=== PATIENT | female | born 1995 | race Caucasian/White ===

== ENCOUNTER 2018-02-01 00:30 | Emergency (ER) | payer OTHER ==
[2018-02-01] MEDS ORDERED: NS 1,000 ML IV ONE ×2 (00:57→02:23)
[2018-02-01] MEDS ORDERED: KETOROLAC 15 MG/1 ML SDV IVP ONE (00:58)
[2018-02-01] MEDS ORDERED: LIDOCAINE 1% 120 MG in NS 100 ML IV ONE (01:08)
--- NOTE | 2018-02-01 01:26 | EDPHY ---
H & P Stated Complaint: venice landa, here monday, L back pain, L abd pain Time Seen by Provider: 02/01/18 00:56 HPI/ROS: HPI The patient presents with left flank and abdominal pain which has been present for the last several days, diagnosed in the emergency department with left- sided ureterolithiasis with 5 mm stone visualized on CT scan at the [facility]. She has been taking Percocet and Flomax at home though has had intermittent episodes of pain. Her pain became worse tonight despite a dose of Percocet so she comes to the emergency department. Pain is dull, constant currently, not associated with any nausea or vomiting. She does not have any hematuria grossly. Her mother has been straining her urine and has noticed some debris though not any stone. She has not followed up with Urology yet.. REVIEW OF SYSTEMS Constitutional: No fever, no chills. Eyes: No discharge. ENT: No sore throat. Cardiovascular: No chest pain, no palpitations. Respiratory: No cough, no shortness of breath. Gastrointestinal: No abdominal pain, no vomiting. Genitourinary: No hematuria. Musculoskeletal: No back pain. Skin: No rashes. Neurological: No headache. PMHx: Ureterolithiasis as above Soc Hx: Here with her mother PHYSICAL General Appearance: Alert, no distress Eyes: Pupils equal and round no pallor or injection ENT, Mouth: Mucous membranes moist Respiratory: There are no retractions, lungs are clear to auscultation Cardiovascular: Regular rate and rhythm Gastrointestinal: Abdomen is soft and non-tender, no masses, bowel sounds normal Back: There is left flank tenderness Neurological: A&O, moves all extremities Skin: Warm and dry, no rashes Musculoskeletal: Neck is supple non tender Extremities: symmetrical, full range of motion Psychiatric: Patient is oriented X 3, there is no agitation Source: Patient Exam Limitations: No limitations - Personal History LMP (Females 10-55): Now Current Tetanus Diphtheria and Acellular Pertussis (TDAP): Yes - Medical/Surgical History Hx Asthma: No Hx Chronic Respiratory Disease: No Hx Diabetes: No Hx Cardiac Disease: No Hx Renal Disease: No Hx Cirrhosis: No Hx Alcoholism: No Hx HIV/AIDS: No Hx Splenectomy or Spleen Trauma: No Other PMH: pe, kidney stones - Social History Smoking Status: Never smoked Constitutional: Initial Vital Signs Temperature (C) 36.6 C 02/01/18 00:32 Heart Rate 83 02/01/18 00:32 Respiratory Rate 18 02/01/18 00:32 Blood Pressure 117/76 02/01/18 00:32 O2 Sat (%) 100 02/01/18 00:32 O2 Delivery Mode Room Air Allergies/Adverse Reactions: No Known Allergies Allergy (Verified 02/01/18 00:31) Home Medications: Medication Instructions Recorded Abilify 01/10/12 Lamictal 01/10/12 Ondansetron Odt [Zofran Odt 4 mg 4 mg PO Q4 PRN #12 tab 01/29/18 (*)] Seroquel 01/29/18 Tamsulosin HCl [Flomax 0.4 MG (*)] 0.4 mg PO DAILY #5 cap 01/29/18 oxyCODONE/APAP 5/325 [Percocet 1 - 2 tab PO Q4H PRN #20 tab 01/29/18 5/325 (*)] Medical Decision Making Differential Diagnosis: 22-year-old healthy female diagnosed with 5 mm ureteral distal calculus 3 days ago presents with ongoing pain. On exam, vital signs are normal, does have left -sided flank pain. Suspect stone is hung up at the [facility]. She could also have urinary tract infection. She is taking Percocet though not any NSAIDs at home which may be contributing to her pain. Plan for Toradol, lidocaine, IV fluids, labs including UA here. Patient's labs were checked and were all relatively unremarkable with just mild hematuria and no signs of renal failure. She received medications and fluids and was observed for several hours and eventually felt much better. I offered her admission to the hospital, however she would like to go home. I have advised her to add ibuprofen to her current medication regimen as I think this would help her symptoms. I have also given her the information once again for the urologist to follow up with in case her symptoms persist. - Data Points Laboratory Results: Laboratory Results 02/01/18 01:25 02/01/18 01:25 02/01/18 02/01/18 02/01/18 01:25 01:25 01:25 WBC 9.03 10^3/uL 10^3/uL (3.80-9.50) RBC 3.62 10^6/uL L 10^6/uL (4.18-5.33) Hgb 11.8 g/dL L g/dL (12.6-16.3) Hct 33.9 % L % (38.0-47.0) MCV 93.6 fL fL (81.5-99.8) MCH 32.6 pg pg (27.9-34.1) MCHC 34.8 g/dL g/dL (32.4-36.7) RDW 12.8 % % (11.5-15.2) Plt Count 232 10^3/uL 10^3/uL (150-400) MPV 10.7 fL fL (8.7-11.7) Neut % (Auto) 46.2 % % (39.3-74.2) Lymph % (Auto) 42.1 % % (15.0-45.0) [place] % (Auto) 8.6 % % (4.5-13.0) Eos % (Auto) 2.3 % % (0.6-7.6) Baso % (Auto) 0.6 % % (0.3-1.7) Nucleat RBC Rel Count 0.0 % % (0.0-0.2) Absolute Neuts (auto) 4.17 10^3/uL 10^3/uL (1.70-6.50) Absolute Lymphs (auto) 3.80 10^3/uL H 10^3/uL (1.00-3.00) Absolute Monos (auto) 0.78 10^3/uL 10^3/uL (0.30-0.80) Absolute Eos (auto) 0.21 10^3/uL 10^3/uL (0.03-0.40) Absolute Basos (auto) 0.05 10^3/uL 10^3/uL (0.02-0.10) Absolute Nucleated RBC 0.00 10^3/uL 10^3/uL (0-0.01) Immature Gran % 0.2 % % (0.0-1.1) Immature Gran # 0.02 10^3/uL 10^3/uL (0.00-0.10) Sodium 138 mEq/L mEq/L (135-145) Potassium 3.8 mEq/L mEq/L (3.3-5.0) Chloride 108 mEq/L mEq/L (97-110) Carbon Dioxide 25 mEq/l mEq/l (22-31) Anion Gap 5 mEq/L L mEq/L (8-16) BUN 13 mg/dL mg/dL (7-23) Creatinine 0.9 mg/dL mg/dL (0.6-1.0) Estimated GFR > 60 Glucose 92 mg/dL mg/dL (70-100) Calcium 9.3 mg/dL mg/dL (8.5-10.4) Urine Color COLORLESS Urine Appearance CLEAR Urine pH 7.0 (5.0-7.5) Ur Specific [place] 1.002 (1.002-1.030) Urine Protein NEGATIVE (NEGATIVE) Urine Ketones NEGATIVE (NEGATIVE) Urine Blood 2+ H (NEGATIVE) Urine Nitrate NEGATIVE (NEGATIVE) Urine Bilirubin NEGATIVE (NEGATIVE) Urine Urobilinogen NEGATIVE EU EU (0.2-1.0) Ur Leukocyte Esterase NEGATIVE (NEGATIVE) Urine RBC 1-3 /hpf /hpf (0-3) Urine WBC 1-3 /hpf /hpf (0-3) Ur Epithelial Cells TRACE /lpf /lpf (NONE-1+) Urine Bacteria TRACE /hpf H /hpf (NONE SEEN) Urine Mucus TRACE /lpf /lpf (NONE-1+) Urine Glucose NEGATIVE (NEGATIVE) Medications Given: Discontinued Medications Sodium Chloride (Ns) 1,000 mls @ 0 mls/hr IV EDNOW ONE; Wide Open PRN Reason: Protocol Stop: 02/01/18 00:58 Last Admin: 02/01/18 01:26 Dose: 1,000 mls Lidocaine HCl 120 mg/ Sodium (Chloride) 112 mls @ 600 mls/hr IV EDNOW ONE Stop: 02/01/18 01:19 Last Admin: 02/01/18 02:16 Dose: 112 mls Sodium Chloride (Ns) 1,000 mls @ 0 mls/hr IV EDNOW ONE; Wide Open PRN Reason: Protocol Stop: 02/01/18 02:24 Last Admin: 02/01/18 02:31 Dose: 1,000 mls Ketorolac Tromethamine (Toradol) 15 mg IVP EDNOW ONE Stop: 02/01/18 00:59 Last Admin: 02/01/18 01:25 Dose: 15 mg Departure - Departure Disposition: Home, Routine, Self-Care Clinical Impression: Renal colic on left side Condition: Good Instructions: Renal Colic (ED) Additional Instructions: I recommend that she add ibuprofen to the medications you are taking. You should take ibuprofen 400 mg every 6 hr around the clock. Then take the Percocet if the pain becomes severe. Please call the urologist to arrange for a follow-up appointment. Referrals: Camille Weaver MD [Primary Care Provider] - As per Instructions Jacob Smith MD [Medical Doctor] - As per Instructions
[2018-02-01 01:36] LABS: PLATELET COUNT 232 10^3/uL (150-400)
[2018-02-01 03:22] VITALS: BP 104/66
== END 2018-02-01 03:37 | disposition home or self-care (01) ==
DX: N23 Unspecified renal colic (principal); E86.9 Volume depletion, unspecified
CPT/HCPCS: 96374; J1885

== ENCOUNTER 2018-10-28 19:15 | Inpatient (IN) | payer OTHER ==
[2018-10-28] MEDS ORDERED: NS 1,000 ML IV ONE ×2 (19:30)
--- NOTE | 2018-10-28 19:30 | EDPHY ---
H & P Stated Complaint: COSTA, fever, neck pain, generalized body aches, nausea Time Seen by Provider: 10/28/18 19:25 HPI/ROS: HPI: This is a 22-year-old female who presents with Chief Complaint: COSTA, fever, neck pain, generalized body aches, nausea Location: Body Quality: Generalized aches, nausea, fever Duration: 24-48 hours Signs and Symptoms: + T-max of a 101 F fever, + nausea, + vomiting, no diarrhea , no urinary symptoms, no chest pain, no shortness of breath, no wheezing, no cough, + sore throat, no neck stiffness, no joint pain, no swollen glands, no ear pain, no rash Timing: Rapid onset, constant Severity: Moderate Context: Patient is up-to-date on immunizations, returns to [place] from [facility] in [place] on Monday with complaints of 24-48 hour history of generalized body aches, headache that is global in nature, fever with a T-max of a 101 F, nausea and 2 episodes of vomiting. She complains of mild right lower quadrant tenderness. Denies any urinary symptoms. Complains of posterior neck pain. She was seen at urgent care and had a negative influenza test. She has a history of strep pharyngitis. No history of mononucleosis. Takes chlorthalidone. Modifying Factors: Took Tylenol 3 hr prior to arrival Comment: ROS: A comprehensive 10 system review of systems is otherwise negative aside from elements mentioned in the history of present illness. MEDICAL/SURGICAL/SOCIAL HISTORY: Medical history: History of strep pharyngitis, history of pulmonary embolism, kidney stones. LMP 2-3 weeks ago. Surgical history: Denies Social history: Drinks alcohol socially, denies drug and tobacco use. Family history noncontributory. CONSTITUTIONAL: Ill but nontoxic-appearing young adult white female, parents at bedside, awake and alert, appears uncomfortable HEENT: Atraumatic and normocephalic, PERRL, EOMI. Nares patent; no rhinorrhea; no nasal mucosal edema. Tympanic membranes clear. Oropharynx clear, 1+ tonsillar hypertrophy with mild erythema; uvula midline; no exudate and moist pink mucosa. Airway patent. Spotty anterior and posterior cervical lymphadenopathy. No meningismus. Cardiovascular: Normal S1/S2, tachycardia, regular rhythm, without murmur rub or gallop. PULMONARY/CHEST: Symmetrical and nontender. Clear to auscultation bilaterally. Good air movement. No accessory muscle usage. ABDOMEN: Soft, nondistended, mild right lower quadrant tenderness to deep palpation, no rebound, no guarding, no peritoneal signs, no masses or organomegaly. No CVAT. EXTREMITIES: 2/2 pulses, strength 5/5, no deformities, no clubbing, no cyanosis or edema. NEUROLOGICAL: no focal neuro deficits. GCS 15. Speech is fluent. SKIN: Warm and dry, diaphoretic, no erythema. no rash. Good capillary refill. Source: Patient, Family (Parents) Exam Limitations: No limitations - Personal History LMP (Females 10-55): 15-21 Days Ago Current Tetanus Diphtheria and Acellular Pertussis (TDAP): Yes - Medical/Surgical History Hx Asthma: No Hx Chronic Respiratory Disease: No Hx Diabetes: No Hx Cardiac Disease: No Hx Renal Disease: No Hx Cirrhosis: No Hx Alcoholism: No Hx HIV/AIDS: No Hx Splenectomy or Spleen Trauma: No Other PMH: pe, kidney stones - Social History Smoking Status: Never smoked Constitutional: Initial Vital Signs Temperature (C) 37.0 C 10/28/18 19:18 Heart Rate 107 H 10/28/18 19:18 Respiratory Rate 16 10/28/18 19:18 Blood Pressure 105/57 L 10/28/18 19:18 O2 Sat (%) 94 10/28/18 19:18 O2 Delivery Mode Room Air Allergies/Adverse Reactions: No Known Allergies Allergy (Verified 02/01/18 00:31) Home Medications: Medication Instructions Recorded ARIPiprazole [Abilify 2 mg (*)] 2 mg PO DAILY 01/10/12 lamoTRIgine [Lamotrigine] 150 mg PO HS 01/10/12 Ascorbic Acid [Vitamin C 500 mg 1,000 mg PO DAILY 10/28/18 (*)] Chlorthalidone [Chlorthalidone 25 25 mg PO DAILY 10/28/18 mg (*)] Dextroamphetamine/Amphetamine 15 mg PO DAILY PRN 10/28/18 [Adderall Xr 15 mg Capsule] Herbals/Supplements -Info Only 1 ea PO DAILY 10/28/18 Medical Decision Making - Diagnostics Imaging Results: Imaging Impressions Abdomen Ultrasound 10/28/18 19:33 Impression: 1. No evidence for dilated appendix in the right lower quadrant. A normal appendix is felt to be identified. Findings discussed with Nury Singleton PAC at 20:20 hour, 10/28/2018. ED Course/Re-evaluation: Vital signs reviewed and show mild tachycardia. No pyrexia. IV access, laboratory studies including lactic acid, blood culture, urinalysis, abdominal ultrasound ordered Given 2 L normal saline, IV Toradol 30 mg 2029: Laboratory studies reviewed. WBC 20 K, lactic acid 1.0, sodium 132, potassium 2.3, creatinine 0.8 2032: Rapid strep negative. [place] screen negative 2034: Called by radiologist, Dr. Young, who reports right lower quadrant ultrasound shows no signs of appendicitis and no secondary signs of appendicitis. 2039: Notified by tech that potassium 2.3; magnesium level ordered and repeat I -STAT potassium level ordered 2109: I-STAT potassium 2.1; given IV potassium 10 mL/Eq supplementation 2128: Magnesium level 1.4;, IV magnesium sulfate [address] Ruffin performed a lumbar puncture 2134: ED decision to consult hospitalist for admission for viral syndrome, hypokalemia and hypomagnesemia. Spoke with Dr. Mathews who kindly agrees to admit patient to Dr. Gonzalez. 2342: Reviewed LP results with Dr. Ruffin. Clear, WBC 3, RBC 13, glucose 60, total protein 37; no indication for antibiotics at this time. This patient was seen under the supervision of my secondary supervising physician. I evaluated and cared for this patient with attending. Discussed this patient with Dr. Ruffin. Differential Diagnosis: Adult fever including but not limited to viral syndromes including influenza, urinary tract infection, pneumonia and sepsis. - Data Points Laboratory Results: Laboratory Results 10/28/18 19:54 10/28/18 19:54 10/28/18 10/28/18 10/28/18 21:04 19:59 19:55 WBC RBC Hgb POC Hgb 12.2 gm/dL L gm/dL (12.6-16.3) Hct POC Hct 36 % L % (38-47) MCV MCH MCHC RDW Plt Count MPV Neut % (Auto) Lymph % (Auto) [place] % (Auto) Eos % (Auto) Baso % (Auto) Nucleat RBC Rel Count Absolute Neuts (auto) Absolute Lymphs (auto) Absolute Monos (auto) Absolute Eos (auto) Absolute Basos (auto) Absolute Nucleated RBC Immature Gran % Seg Neutrophils % Band Neutrophils % Lymphocytes % Monocytes % Eosinophils % Basophils % Metamyelocytes % Myelocytes % Promyelocytes % Blast Cells % Immature Gran # Absolute Seg Neuts Absolute Band Neuts Absolute Lymphocytes Absolute Monocytes Absolute Eosinophils Absolute Basophils Absolute Metamyelocyte Absolute Myelocytes Absolute Promyelocytes Absolute Plasma Cells Nucleated RBCs RBC/WBC/PLT Morphology Absolute Blast Cells Plasma Cells % Platelet Estimate VBG Lactic Acid 1.0 mmol/L mmol/L (0.7-2.1) POC Sodium 135 mEq/L mEq/L (135-145) Sodium POC Potassium 2.1 mEq/L L* mEq/L (3.3-5.0) Potassium POC Chloride 90 mEq/L L mEq/L (97-110) Chloride Carbon Dioxide POC Total CO2 31 mEq/L mEq/L (22-31) Anion Gap POC BUN 9 mg/dL mg/dL (7-23) BUN Creatinine POC Creatinine 0.9 mg/dL mg/dL (0.6-1.0) Estimated GFR Glucose POC Glucose 99 mg/dL mg/dL (70-100) Calcium Magnesium 1.4 mg/dL L mg/dL (1.6-2.3) Total Bilirubin Conjugated Bilirubin Unconjugated Bilirubin AST ALT Alkaline Phosphatase Total Protein Albumin Beta HCG, Qual EBV Capsid Ag IgG Ab EBV Capsid Ag IgM Ab EBV Nuclear Antigen Ab EBV Interpretation Monoscreen Group A Strep Screen 10/28/18 10/28/18 10/28/18 19:54 19:54 19:54 WBC RBC Hgb POC Hgb Hct POC Hct MCV MCH MCHC RDW Plt Count MPV Neut % (Auto) Lymph % (Auto) [place] % (Auto) Eos % (Auto) Baso % (Auto) Nucleat RBC Rel Count Absolute Neuts (auto) Absolute Lymphs (auto) Absolute Monos (auto) Absolute Eos (auto) Absolute Basos (auto) Absolute Nucleated RBC Immature Gran % Seg Neutrophils % Band Neutrophils % Lymphocytes % Monocytes % Eosinophils % Basophils % Metamyelocytes % Myelocytes % Promyelocytes % Blast Cells % Immature Gran # Absolute Seg Neuts Absolute Band Neuts Absolute Lymphocytes Absolute Monocytes Absolute Eosinophils Absolute Basophils Absolute Metamyelocyte Absolute Myelocytes Absolute Promyelocytes Absolute Plasma Cells Nucleated RBCs RBC/WBC/PLT Morphology Absolute Blast Cells Plasma Cells % Platelet Estimate VBG Lactic Acid POC Sodium Sodium 132 mEq/L L mEq/L (135-145) POC Potassium Potassium 2.3 mEq/L L* mEq/L (3.5-5.2) POC Chloride Chloride 88 mEq/L L mEq/L (97-110) Carbon Dioxide 30 mEq/l mEq/l (22-31) POC Total CO2 Anion Gap 14 mEq/L mEq/L (6-14) POC BUN BUN 12 mg/dL mg/dL (7-23) Creatinine 0.8 mg/dL mg/dL (0.6-1.0) POC Creatinine Estimated GFR > 60 Glucose 99 mg/dL mg/dL (70-100) POC Glucose Calcium 8.8 mg/dL mg/dL (8.5-10.4) Magnesium Total Bilirubin 2.8 mg/dL H mg/dL (0.1-1.4) Conjugated Bilirubin 0.4 mg/dL mg/dL (0.0-0.5) Unconjugated Bilirubin 2.4 mg/dL H mg/dL (0.0-1.1) AST 57 IU/L H IU/L (14-46) ALT 74 IU/L H IU/L (9-52) Alkaline Phosphatase 117 IU/L IU/L (38-126) Total Protein 6.4 g/dL g/dL (6.3-8.2) Albumin 3.9 g/dL g/dL (3.5-5.0) Beta HCG, Qual NEGATIVE EBV Capsid Ag IgG Ab Pending EBV Capsid Ag IgM Ab Pending EBV Nuclear Antigen Ab Pending EBV Interpretation Pending Monoscreen NEGATIVE (NEGATIVE) Group A Strep Screen 10/28/18 10/28/18 19:54 19:30 WBC 19.63 10^3/uL H 10^3/uL (3.80-9.50) RBC 4.03 10^6/uL L 10^6/uL (4.18-5.33) Hgb 13.2 g/dL g/dL (12.6-16.3) POC Hgb Hct 36.5 % L % (38.0-47.0) POC Hct MCV 90.6 fL fL (81.5-99.8) MCH 32.8 pg pg (27.9-34.1) MCHC 36.2 g/dL g/dL (32.4-36.7) RDW 11.9 % % (11.5-15.2) Plt Count 187 10^3/uL 10^3/uL (150-400) MPV 11.3 fL fL (8.7-11.7) Neut % (Auto) Not Reported Lymph % (Auto) Not Reported [place] % (Auto) Not Reported Eos % (Auto) Not Reported Baso % (Auto) Not Reported Nucleat RBC Rel Count Not Reported Absolute Neuts (auto) Not Reported Absolute Lymphs (auto) Not Reported Absolute Monos (auto) Not Reported Absolute Eos (auto) Not Reported Absolute Basos (auto) Not Reported Absolute Nucleated RBC Not Reported Immature Gran % Not Reported Seg Neutrophils % 80.0 % % Band Neutrophils % 9.0 % % Lymphocytes % 4.0 % % Monocytes % 6.0 % % Eosinophils % 0.0 % % Basophils % 1.0 % % Metamyelocytes % 0.0 % % Myelocytes % 0.0 % % Promyelocytes % 0.0 % % Blast Cells % 0.0 % % Immature Gran # Not Reported Absolute Seg Neuts 15.70 10^3/uL H 10^3/uL (1.70-6.50) Absolute Band Neuts 1.77 10^3/uL H 10^3/uL (0.00-0.70) Absolute Lymphocytes 0.79 10^3/uL L 10^3/uL (1.00-3.00) Absolute Monocytes 1.18 10^3/uL H 10^3/uL (0.30-0.80) Absolute Eosinophils 0.00 10^3/uL L 10^3/uL (0.03-0.40) Absolute Basophils 0.20 10^3/uL H 10^3/uL (0.02-0.10) Absolute Metamyelocyte 0.00 10^3/mL 10^3/mL (0.00-0.00) Absolute Myelocytes 0.00 10^3/mL 10^3/mL (0.00-0.00) Absolute Promyelocytes 0.00 10^3/uL 10^3/uL (0.00-0.00) Absolute Plasma Cells 0.00 10^3/uL 10^3/uL (0.00-0.00) Nucleated RBCs 0 /100 WBC /100 WBC (0-0) RBC/WBC/PLT Morphology NORMAL (NORMAL) Absolute Blast Cells 0.00 10^3/uL 10^3/uL (0.00-0.00) Plasma Cells % 0.0 % % Platelet Estimate ADEQUATE (ADEQ) VBG Lactic Acid POC Sodium Sodium POC Potassium Potassium POC Chloride Chloride Carbon Dioxide POC Total CO2 Anion Gap POC BUN BUN Creatinine POC Creatinine Estimated GFR Glucose POC Glucose Calcium Magnesium Total Bilirubin Conjugated Bilirubin Unconjugated Bilirubin AST ALT Alkaline Phosphatase Total Protein Albumin Beta HCG, Qual EBV Capsid Ag IgG Ab EBV Capsid Ag IgM Ab EBV Nuclear Antigen Ab EBV Interpretation Monoscreen Group A Strep Screen NEGATIVE (NEGATIVE) Medications Given: Magnesium Sulfate/Dextrose (Magnesium Sulf 1 Gm (Premix)) 100 mls @ 100 mls/hr IV EDNOW ONE Stop: 10/29/18 00:53 Last Admin: 10/28/18 23:56 Dose: 100 mls Discontinued Medications Fentanyl (Sublimaze) 50 mcg IVP EDNOW ONE Stop: 10/28/18 21:54 Last Admin: 10/28/18 22:02 Dose: 50 mcg Sodium Chloride (Ns) 1,000 mls @ 0 mls/hr IV ONCE ONE; Wide Open PRN Reason: Protocol Stop: 10/28/18 19:31 Last Admin: 10/28/18 19:56 Dose: 1,000 mls Sodium Chloride (Ns) 1,000 mls @ 0 mls/hr IV ONCE ONE; Wide Open PRN Reason: Protocol Stop: 10/28/18 19:31 Last Admin: 10/28/18 22:02 Dose: 1,000 mls Potassium Chloride (Potassium Cl 20 Meq (Premix)) 100 mls @ 50 mls/hr IV EDNOW ONE Stop: 10/28/18 23:13 Last Admin: 10/28/18 21:28 Dose: Not Given Potassium Chloride (Potassium Cl 10 Meq (Premix)) 100 mls @ 100 mls/hr IV EDNOW ONE Stop: 10/28/18 22:26 Last Admin: 10/28/18 22:02 Dose: 100 mls Magnesium Sulfate (Magnesium Sulf 2 Gm (Premix)) 50 mls @ 50 mls/hr IV EDNOW ONE Stop: 10/28/18 22:28 Last Admin: 10/28/18 23:56 Dose: Not Given Potassium Chloride (Potassium Cl 10 Meq (Premix)) 50 mls @ 50 mls/hr IV EDNOW ONE Stop: 10/28/18 22:31 Last Admin: 10/28/18 22:56 Dose: 50 mls Ketorolac Tromethamine (Toradol) 30 mg IVP EDNOW ONE Stop: 10/28/18 19:35 Last Admin: 10/28/18 20:00 Dose: 30 mg Point of Care Test Results: Chemistry 10/28/18 21:04 POC Sodium 135 mEq/L mEq/L (135-145) POC Potassium 2.1 mEq/L L* mEq/L (3.3-5.0) POC Chloride 90 mEq/L L mEq/L (97-110) POC Total CO2 31 mEq/L mEq/L (22-31) POC BUN 9 mg/dL mg/dL (7-23) POC Creatinine 0.9 mg/dL mg/dL (0.6-1.0) POC Glucose 99 mg/dL mg/dL (70-100) ISTAT H&H 10/28/18 21:04 POC Hgb 12.2 gm/dL L gm/dL (12.6-16.3) POC Hct 36 % L % (38-47) Departure - Departure Disposition: [facility] Inpatient Acute Clinical Impression: Viral syndrome, Hypokalemia, Hypomagnesemia Condition: Fair
[2018-10-28] MEDS ORDERED: KETOROLAC 30 MG/1 ML SDV IVP ONE (19:34)
[2018-10-28 20:10] LABS: PLATELET COUNT 187 10^3/uL (150-400)
[2018-10-28] MEDS ORDERED: POTASSIUM Cl (KCl) 100 ML IV ONE ×2 (21:14→21:27)
[2018-10-28] MEDS ORDERED: POTASSIUM Cl (KCl) 10 MEQ/100 ML BAG IV ONE (21:16)
[2018-10-28] MEDS ORDERED: MAGNESIUM SULF 2 GM/WATER 50 ML IV ONE (21:29)
[2018-10-28] MEDS ORDERED: POTASSIUM Cl (KCl) 50 ML IV ONE (21:32)
[2018-10-28] MEDS ORDERED: fentaNYL 100 MCG/2 ML INJ ONE (21:39)
[2018-10-28] MEDS ORDERED: fentaNYL 100 MCG/2 ML INJ IVP ONE (21:53)
[2018-10-28] MEDS ORDERED: LORazepam 0.5 MG TAB PO PRN (22:14)
[2018-10-28] MEDS ORDERED: ONDANSETRON DISINTEGRATING 4 MG TAB PO PRN (22:14)
[2018-10-28] MEDS ORDERED: PROMETHAZINE HCL 25 MG/ML INJ IVP PRN (22:14)
[2018-10-28] MEDS ORDERED: LORazepam 2 MG/ML INJ IVP PRN (22:14)
[2018-10-28] MEDS ORDERED: NS 1,000 ML IV SCH (22:15)
[2018-10-28] MEDS ORDERED: MAGNESIUM SULF 1 GM/DEXTROSE 100 ML IV ONE (23:54)
[2018-10-29] MEDS ORDERED: MAGNESIUM SULF 1 GM/DEXTROSE 100 ML IV ONE (00:15)
[2018-10-29] MEDS: lamoTRIgine 100 MG TAB PO SCH ×2 (00:55→20:39)
[2018-10-29] MEDS: ARIPiprazole 2 MG TAB PO SCH ×2 (00:55→11:08)
[2018-10-29] MEDS: ONDANSETRON 4 MG/2 ML VIAL IVP PRN (02:50)
--- NOTE | 2018-10-29 03:26 | PDGENHP ---
History and Physical - Chief Complaint fever/chills, headache, nausea/vomiting - History of Present Illness Source - Patient provides history and appears reliable. she is increasingly fatigued during interview. Mother at bedside and provides some details. EMR reviewed and case discussed with ED provider. HPI - This is a pleasant 22 yo F with pmhx significant for PE (age 16) and nephrolithiasis who presents to the ED today with complaints of 24-48 hours of fevers/chills/sweats, bodyaches, nausea with 1 episode of vomiting, COSTA and neck pain. Patient denies any known sick contacts. 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 She reports being up-to-date on all vaccinations. She denies any dysuria, hematuria or flank pain. she denies any sore throat, rhinorrhea or cough. She denies any diarrhea. she does not a mild abdominal pain RLQ currently improved after receiving toradol and now "only hurts when you push on it." She presented to urgent care initially and was noted to have a negative rapid flu. patient is currently on chlorthalidone for hx of nephrolithiasis. History Information - Allergies/Home Medication List Allergies/Adverse Reactions: No Known Allergies Allergy (Verified 02/01/18 00:31) Home Medications: ARIPiprazole [Abilify 2 mg (*)] 2 mg PO DAILY 01/10/12 [Last Taken 10/27/18] lamoTRIgine [Lamotrigine] 150 mg PO HS 01/10/12 [Last Taken 10/26/18] Ascorbic Acid [Vitamin C 500 mg (*)] 1,000 mg PO DAILY 10/28/18 [Last Taken Unknown] Chlorthalidone [Chlorthalidone 25 mg (*)] 25 mg PO DAILY 10/28/18 [Last Taken ] Dextroamphetamine/Amphetamine [Adderall Xr 15 mg Capsule] 15 mg PO DAILY PRN [Last Taken 10/26/18] Herbals/Supplements -Info Only 1 ea PO DAILY 10/28/18 [Last Taken 10/26/18] I have personally reviewed and updated: family history, medical history, social history, surgical history - Past Medical History psychiatric history Additional medical history: hx PE. hx of obstructive nephrolithiasis. strep pharyngitis - Surgical History Additional surgical history: renal stent. wisdom tooth extraction - Family History Additional family history: MGF - CVA. PGF - CAD. 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 Review of Systems Review of Systems: ROS: 10pt was reviewed & negative except for what was stated in HPI & below Constitutional: Reports: chills, fever, malaise EENMT: Reports: no symptoms. Denies: nose congestion, sore throat Cardiac: Reports: no symptoms Respiratory: Reports: no symptoms Gastrointestinal: Reports: vomitting (x1), abdominal pain (RLQ mild), nausea. Denies: rectal bleeding, abdominal distention, diarrhea Genitourinary: Reports: no symptoms. Denies: dysuria, flank pain, frequency, hematuria Muscolosketal: Reports: neck pain Skin: Reports: no symptoms Neurological: Reports: headache Hematologic/Lymphatic: Reports: no symptoms Physical Exam Physical Exam: Selected Entries 10/28/18 10/28/18 19:18 22:03 Blood Pressure Automatic Automatic Method Heart Rate 107 H 78 Respiratory 16 20 Rate O2 Sat (%) 94 99 Temperature (C) 37.0 C Blood Pressure 105/57 L 96/51 L Mean Arterial 73 66 Pressure (MAP) O2 (L/minute) 2 O2 Delivery Room Air Nasal Cannula Mode Temperature Oral Source Constitutional: no apparent distress, other (NAD. patient lays in bed, appears acutely ill, diaphoretic. awake and appropriately interactive. fatigued appearing. . mother at bedside. ) Eyes: PERRL, anicteric sclera, EOMI, No scleral injection Ears, Nose, Mouth, Throat: dry mucous membranes, other (no oropharyngeal erythema/exudates), No poor dentition Cardiovascular: regular rate and rhythym, No no murmur, rub, or gallop Peripheral Pulses: 2+: dorsalis-pedis (R), dorsalis-pedis (L) Respiratory: no respiratory distress, no rales or rhonchi, clear to auscultation , No inspiratory crackles, No respiratory distress Gastrointestinal: no palpable masses, tenderness, other (hypoactive bowel sounds , abdomen soft. no rebound/guarding. pt notes mild ttp RLQ. ), No guarding, No rebound, No distension Genitourinary: no bladder tenderness, other (no CVA tenderness), No moura in urethra Skin: warm, normal color, other (mild pallor) Musculoskeletal: full muscle strength, other (grossly normal. sits up independently. fatigued) Neurologic: AAOx3, sensation intact bilaterally, other (grossly nonfocal. patient with decreased ROM 2/2 neck pain. neg kurnigs/brudzinski), No facial droop Psychiatric: interacting appropriately, not anxious, not encephalopathic, thought process linear, other (patient fatigued and appears ill. falls asleep during end of interview. ) Lab Data & Imaging Review 10/28/18 19:54 10/28/18 19:54 WBC 19.63 10^3/uL (3.80-9.50) H 10/28/18 19:54 RBC 4.03 10^6/uL (4.18-5.33) L 10/28/18 19:54 Hgb 13.2 g/dL (12.6-16.3) 10/28/18 19:54 POC Hgb 12.2 gm/dL (12.6-16.3) L 10/28/18 21:04 Hct 36.5 % (38.0-47.0) L 10/28/18 19:54 POC Hct 36 % (38-47) L 10/28/18 21:04 MCV 90.6 fL (81.5-99.8) 10/28/18 19:54 MCH 32.8 pg (27.9-34.1) 10/28/18 19:54 MCHC 36.2 g/dL (32.4-36.7) 10/28/18 19:54 RDW 11.9 % (11.5-15.2) 10/28/18 19:54 Plt Count 187 10^3/uL (150-400) 10/28/18 19:54 MPV 11.3 fL (8.7-11.7) 10/28/18 19:54 Neut % (Auto) Not Reported 10/28/18 19:54 Lymph % (Auto) Not Reported 10/28/18 19:54 [place] % (Auto) Not Reported 10/28/18 19:54 Eos % (Auto) Not Reported 10/28/18 19:54 Baso % (Auto) Not Reported 10/28/18 19:54 Nucleat RBC Rel Count Not Reported 10/28/18 19:54 Absolute Neuts (auto) Not Reported 10/28/18 19:54 Absolute Lymphs (auto) Not Reported 10/28/18 19:54 Absolute Monos (auto) Not Reported 10/28/18 19:54 Absolute Eos (auto) Not Reported 10/28/18 19:54 Absolute Basos (auto) Not Reported 10/28/18 19:54 Absolute Nucleated RBC Not Reported 10/28/18 19:54 Immature Gran % Not Reported 10/28/18 19:54 Seg Neutrophils % 80.0 % 10/28/18 19:54 Band Neutrophils % 9.0 % 10/28/18 19:54 Lymphocytes % 4.0 % 10/28/18 19:54 Monocytes % 6.0 % 10/28/18 19:54 Eosinophils % 0.0 % 10/28/18 19:54 Basophils % 1.0 % 10/28/18 19:54 Metamyelocytes % 0.0 % 10/28/18 19:54 Myelocytes % 0.0 % 10/28/18 19:54 Promyelocytes % 0.0 % 10/28/18 19:54 Blast Cells % 0.0 % 10/28/18 19:54 Immature Gran # Not Reported 10/28/18 19:54 Absolute Seg Neuts 15.70 10^3/uL (1.70-6.50) H 10/28/18 19:54 Absolute Band Neuts 1.77 10^3/uL (0.00-0.70) H 10/28/18 19:54 Absolute Lymphocytes 0.79 10^3/uL (1.00-3.00) L 10/28/18 19:54 Absolute Monocytes 1.18 10^3/uL (0.30-0.80) H 10/28/18 19:54 Absolute Eosinophils 0.00 10^3/uL (0.03-0.40) L 10/28/18 19:54 Absolute Basophils 0.20 10^3/uL (0.02-0.10) H 10/28/18 19:54 Absolute Metamyelocyte 0.00 10^3/mL (0.00-0.00) 10/28/18 19:54 Absolute Myelocytes 0.00 10^3/mL (0.00-0.00) 10/28/18 19:54 Absolute Promyelocytes 0.00 10^3/uL (0.00-0.00) 10/28/18 19:54 Absolute Plasma Cells 0.00 10^3/uL (0.00-0.00) 10/28/18 19:54 Nucleated RBCs 0 /100 WBC (0-0) 10/28/18 19:54 RBC/WBC/PLT Morphology NORMAL (NORMAL) 10/28/18 19:54 Absolute Blast Cells 0.00 10^3/uL (0.00-0.00) 10/28/18 19:54 Plasma Cells % 0.0 % 10/28/18 19:54 Platelet Estimate ADEQUATE (ADEQ) 10/28/18 19:54 VBG Lactic Acid 1.0 mmol/L (0.7-2.1) 10/28/18 19:59 POC Sodium 135 mEq/L (135-145) 10/28/18 21:04 Sodium 132 mEq/L (135-145) L 10/28/18 19:54 POC Potassium 2.1 mEq/L (3.3-5.0) L* 10/28/18 21:04 Potassium 2.3 mEq/L (3.5-5.2) L* 10/28/18 19:54 POC Chloride 90 mEq/L (97-110) L 10/28/18 21:04 Chloride 88 mEq/L (97-110) L 10/28/18 19:54 Carbon Dioxide 30 mEq/l (22-31) 10/28/18 19:54 POC Total CO2 31 mEq/L (22-31) 10/28/18 21:04 Anion Gap 14 mEq/L (6-14) 10/28/18 19:54 POC BUN 9 mg/dL (7-23) 10/28/18 21:04 BUN 12 mg/dL (7-23) 10/28/18 19:54 Creatinine 0.8 mg/dL (0.6-1.0) 10/28/18 19:54 POC Creatinine 0.9 mg/dL (0.6-1.0) 10/28/18 21:04 Estimated GFR > 60 10/28/18 19:54 Glucose 99 mg/dL (70-100) 10/28/18 19:54 POC Glucose 99 mg/dL (70-100) 10/28/18 21:04 Calcium 8.8 mg/dL (8.5-10.4) 10/28/18 19:54 Magnesium 1.4 mg/dL (1.6-2.3) L 10/28/18 19:55 Total Bilirubin 2.8 mg/dL (0.1-1.4) H 10/28/18 19:54 Conjugated Bilirubin 0.4 mg/dL (0.0-0.5) 10/28/18 19:54 Unconjugated Bilirubin 2.4 mg/dL (0.0-1.1) H 10/28/18 19:54 AST 57 IU/L (14-46) H 10/28/18 19:54 ALT 74 IU/L (9-52) H 10/28/18 19:54 Alkaline Phosphatase 117 IU/L (38-126) 10/28/18 19:54 Total Protein 6.4 g/dL (6.3-8.2) 10/28/18 19:54 Albumin 3.9 g/dL (3.5-5.0) 10/28/18 19:54 Beta HCG, Qual NEGATIVE 10/28/18 19:54 Urine Color KRISTY 10/29/18 02:50 Urine Appearance MODERATELY TURBID 10/29/18 02:50 Urine pH 5.0 (5.0-7.5) 10/29/18 02:50 Ur Specific Dalton 1.016 (1.002-1.030) 10/29/18 02:50 Urine Protein 1+ (NEGATIVE) H 10/29/18 02:50 Urine Ketones 1+ (NEGATIVE) H 10/29/18 02:50 Urine Blood 1+ (NEGATIVE) H 10/29/18 02:50 Urine Nitrate NEGATIVE (NEGATIVE) 10/29/18 02:50 Urine Bilirubin NEGATIVE (NEGATIVE) 10/29/18 02:50 Urine Urobilinogen NEGATIVE EU (0.2-1.0) 10/29/18 02:50 Ur Leukocyte Esterase 2+ (NEGATIVE) H 10/29/18 02:50 Urine RBC 25-50 /hpf (0-3) H 10/29/18 02:50 Urine WBC 50-182 /hpf (0-3) H 10/29/18 02:50 Ur Epithelial Cells NONE SEEN /lpf (NONE-1+) 10/29/18 02:50 Urine Bacteria 4+ /hpf (NONE SEEN) H 10/29/18 02:50 Urine Mucus 3+ /lpf (NONE-1+) H 10/29/18 02:50 Urine Glucose NEGATIVE (NEGATIVE) 10/29/18 02:50 CSF Tube Number 4 10/28/18 21:50 CSF Appearance CLEAR (CLEAR) 10/28/18 21:50 CSF Color COLORLESS (COLORLESS) 10/28/18 21:50 CSF Supernatant COLORLESS (COLORLESS) 10/28/18 21:50 CSF WBC 3 /mm3 (0-5) 10/28/18 21:50 CSF RBC 13 /mm3 (0-0) H 10/28/18 21:50 CSF Glucose 60 mg/dL (50-75) 10/28/18 21:50 CSF Total Protein 37 mg/dL (12-60) 10/28/18 21:50 Monoscreen NEGATIVE (NEGATIVE) 10/28/18 19:54 Group A Strep Screen NEGATIVE (NEGATIVE) 10/28/18 19:30 Assessment & Plan Assessment: This is a pleasant 22 yo F with pmhx significant for PE (age 16) and nephrolithiasis who presents to the ED today with complaints of 24-48 hours of fevers/chills/sweats, bodyaches, nausea with 1 episode of vomiting, COSTA and neck pain. Patient denies any known sick contacts. #Fever - patient with sx concerning for viral type syndrome. neg flu at urgent care. neg strep. mono. awaiting urine sample to r/o UTI while in ED however patient denies any dysuria/hematuria/flank pain. patient with c/o COSTA without photophobia and neck pain with decreased ROM but neg meningeal signs. LP WNL. HSV, EBC pending. Patient appears acutely ill. SBPs 90s and patient reports at baseline. ID consulted from ED. discussed obtaining CT abdomen/pelvis with her c/o RLQ abdominal pain. US neg for evidence of acute appy. Patient would like to monitor overnight for any changes as she notes her abdominal pain "is not bad " while at rest and just upon palpation. no acute abdomen at this time. Patient with history of multiple CT scans given hx of PE and nephrolithiasis she would like to avoid at this time but will notify if her abdominal sx worsen. #Hypokalemia (Acute) - replacement ordered. repeat K in AM. #Hypomagnesemia (Acute) - replacement in ED given. repeat mag in AM. #hyponatremia - holding chlorthalidone. IVF. #hyperbilirubinemia/mild transaminitis - IVF. repeat LFT in AM. #Hx PE - holding anticoagulation with recent lp. mobilize as tolerated. #Hx nephrolithiasis - UA pending. holding off on CT abdomen/pelvis per patient request. #mood d/o - continue abilify and lamictal. holding adderall. FEN - IVF. electrolytes replacement/monitoring. diet as tolerated. PPX - SCDs. holding anticoagulation s/p LP. COR - FULL. Dispo - Patient admitted to inpatient status in setting of severity of symptoms and continued evaluation. anticipate > 2 midnight stay.
[2018-10-29] MEDS: ACETAMINOPHEN 325 MG TAB PO PRN ×2 (03:51→10:27)
[2018-10-29 04:37] LABS: PLATELET COUNT 153 10^3/uL (150-400)
[2018-10-29] MEDS: POTASSIUM CL 20 MEQ/15 ML UDCUP PO SCH ×3 (07:17→14:25)
--- NOTE | 2018-10-29 10:11 | ASMTCMCOM ---
CM Note CM Note Notes: Chart reviewed. Discussed plan of care with MD. 22 year old female student admitted via ED with fever, had LP for diagnostic workup. Family at bedside. Electrolyte imbalances noted. CM to follow for needs. Plan: TBD Date Signed: 10/29/2018 10:11 AM Electronically Signed By:Kamala Braden RN
--- NOTE | 2018-10-29 10:16 | GCON ---
[f rep st] CONSULTATION INFECTIOUS DISEASE CONSULTATION DATE OF CONSULTATION: 10/29/2018 Provider requesting consultation: Dr. Beatriz Gonzalez Source of history: records, patient and mother. REASON FOR CONSULTATION: Fever of unclear etiology. HISTORY OF PRESENT ILLNESS: A 22-year-old woman with a past medical history of pulmonary embolus, off anticoagulation x4 years, unclear etiology, and history of obstructive nephrolithiasis, who presents to the emergency room with fever, chills, headache. The patient is going to college in [place], and on evening, October 25, returned to [place] to visit her family. On Monday , she developed chills, headache, mild dizziness. She did not take any therapy for this as she thought she was fatigued. On Monday in the evening, she developed a fever. This persisted into Monday with ongoing worsening headache, mild neck pain, mild dizziness, and she presented to the emergency room at 1900 for further evaluation. She also had some nausea and vomiting prior to presentation. Mild right upper quadrant abdominal pain. No diarrhea. Nausea and vomiting have remitted, and headache is significantly improved today. In the emergency room, the patient underwent a lumbar puncture which showed no evidence of meningitis. The patient denies urinary frequency, dysuria, difficulty emptying her bladder. She denies back pain or flank pain and suprapubic pain. She has no associated rash, throat pain, dental pain, joint swelling. Further, she denies sick contacts. She lives in a house with 9 other girls, no other sick. No animal contacts. She is studying communication and psychology. Only recent travel was [place] in August for spring. She is sexually active with her boyfriend of 2 years. She has an IUD in place, and they do not use condoms. No known history of HSV. They do seek regular STD screening. She cannot remember her last screen. PAST MEDICAL HISTORY: Pulmonary embolus as per HPI. The patient has had multiple CTs relating to this etiology. Cause of having pulmonary emboli is unknown. 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 Elevated unconjugated bilirubin also present in January of 2018. PAST SURGICAL HISTORY: Renal stent and wisdom tooth extraction. ALLERGIES: NKDA. MEDICATIONS: Ceftriaxone started at 3:30 in the evening, 1 g IV daily; Abilify 2 mg daily; Tylenol; Ativan; Zofran; Phenergan as p.r.n.; as well as normal saline. SOCIAL HISTORY: The patient is a college student. Occasional alcohol and tobacco. No drugs. Is an identical twin. Studying psychology. No past history of STDs FAMILY HISTORY: Positive for stroke and nephrolithiasis. REVIEW OF SYSTEMS: A complete 10-point review of systems was performed, and is negative except as mentioned in the HPI. The patient last received antibiotics in September; she went to Urgent Care for a sore throat, received a 10-day course of amoxicillin, with recurrence of sore throat, then treatment with clindamycin , completing antibiotics October 03, which resolved her problem. She has no further sore throat. Rest of review of systems was negative. The patient reports regular menses that are not heavy. Describes chest tightness when she has a fever. This has resolved PHYSICAL EXAM: VITAL SIGNS: T-max 39.3, T current 36.8, blood pressure 83/43, heart rate 78, as high as 115 with fever, respiratory rate 12, and saturation 99 % on 2 L. GENERAL: This is a very pleasant woman lying in bed in no distress, fluent speech. HEENT: Pupils are reactive bilaterally. Extraocular muscles are intact. Good dentition. Slightly dry mucous membranes. No erythema in the posterior pharynx. Tonsils are not swollen. No exudates. NECK: She had some tenderness over her sternocleidomastoid muscle. She had no meningismus. No lymphadenopathy. Trachea was midline. CARDIOVASCULAR: Regular rate and rhythm with an S3, possible faint late systolic murmur. CHEST: Clear to auscultation bilaterally. ABDOMEN: Soft, nontender. She had some mild discomfort to deep palpation right upper quadrant, but no peritoneal signs. She also had significant left flank pain. No suprapubic tenderness. EXTREMITIES: No clubbing, cyanosis, or edema. No joint swelling. No peripheral stigmata of endocarditis. NEUROLOGIC: She was alert and oriented x4. Moving all 4 extremities equally. SKIN: No rash. She appeared mildly diaphoretic. LABORATORY: White count on admission 19,000, 80% neutrophils, 9 bands, hematocrit 36. Hematocrit today 33, platelets 153, white count 10, 67% neutrophils, 18% bands. Electrolytes: The patient's potassium shay at 2.1 today, at 3:30 is 2.6, creatinine 0.8, calcium 7.5, total bilirubin 3, unconjugated 2.5, ALT 61, AST 41, albumin 2.8. Urinalysis showed 25-50 RBCs, 50 -182 WBCs, 4+ bacteria, 1+ protein, 1+ blood, leukocyte esterase 2+, nitrate negative. CSF: 3 WBCs, 13 RBCs, 60 glucose, 37 protein. INR 0.9. Lactate 1. IMAGING: Abdominal ultrasound 10/27/2018 was performed in the emergency room, which showed no acute appendicitis. Beta HCG was negative. PLAN AND ASSESSMENT: A 22-year-old woman who presents with acute onset of febrile illness with a remote history of PE and a recent history of obstructive nephrolithiasis, who is found to have significant pyuria, notable absence of urinary symptoms, although this is not entirely unusual with acute presentations of pyelonephritis. Strongly suspect pyelonephritis plus or minus associated bacteremia. DDX could include viral illness, PNA (chest tightness with fever but no other respiratory symptoms or hypoxia). Will continue to monitor. 1. At this point, will defer CT scans due to significant number of CTs in the past, although concern for recurrent nephrolithiasis. Will request a renal ultrasound to rule out obstructive disease. 2. We will continue to monitor blood and urine cultures and adjust antibiotics appropriately. Agree with empiric therapy with ceftriaxone 1 g IV daily. Risks and benefits of antibiotic therapy were discussed with the patient and her family at the bedside. 3. Elevated total bilirubin. Suspect Gilbert's, but patient may need followup as an outpatient to further delineate what is going on. 4. Hypokalemia. Suspect this is related to her therapy for kidney stones, the chlorthalidone, plus vomiting. This was explained to the family. Hospitalist to replete. Time was 80 minutes, greater than 50% of time spent in education and counseling regarding differential diagnosis and likely disease process of complicated UTI with possible bacteremia. Discussed the course for improvement could take up to 2-4 days. Therefore, her travel back to [place] should be delayed, tentatively recommended Monday for travel. After culture results are present, will determine oral antibiotic treatment course. Thank you for this consultation. We will continue to see her on a daily basis. /[id number]/MODL MTDD
[2018-10-29] MEDS: KETOROLAC 15 MG/1 ML SDV IVP PRN ×2 (11:25→20:45)
[2018-10-29] MEDS ORDERED: POTASSIUM Cl (KCl) 40 MEQ in NS 1,000 ML IV SCH (11:30)
[2018-10-29] MEDS: ACETAMINOPHEN 500 MG TAB PO SCH ×2 (14:26→22:48)
--- NOTE | 2018-10-29 15:40 | HOSPPROG ---
Hospitalist Progress Note Assessment/Plan: This is a pleasant 22 yo F with pmhx significant for PE (age 16) and nephrolithiasis who presents to the ED today with complaints of 24-48 hours of fevers/chills/sweats, bodyaches, nausea with 1 episode of vomiting, COSTA and neck pain. Patient denies any known sick contacts. #Fever - - Patient with c/o COSTA without photophobia and neck pain with decreased ROM but neg meningeal signs. LP WNL. HSV, EBC pending. - UA positive for 2+ LE, 50-182 WBC, 4+ Bacteria, 3+ Mucus, also with L sided flank pain as well as costovertebral angle tenderness this AM, urine culture pending - ID consulted this AM, recommend continued IV Ceftriaxone for now pending culture data, also ordered retroperitoneal U/S which shows increased echogenicity in superior pole of L kidney, which could represent pyelonephritis , no evidence of hydronephrosis - Patient with history of nephrolithiasis and multiple CT scans given hx of PE and nephrolithiasis she would like to avoid more exposure to radiation at this time, discussed that if symptoms are not improving over next 24 hours we may need to proceed with CT A/P w/o IVC to further evaluate for kidney stone despite no hydronephrosis seen on U/S - Urine, blood, and CSF cultures pending #Hypokalemia (Acute) - replacement ordered. K added to mIVF this AM. Continue to monitor #Hypomagnesemia (Acute) - replacement given. Continue to monitor #hyponatremia - holding chlorthalidone. IVF. #hyperbilirubinemia/mild transaminitis - IVF. Improving. Continue to monitor #Hx PE - holding anticoagulation with recent lp. mobilize as tolerated. #Hx nephrolithiasis - UA positiv, holding off on CT abdomen/pelvis per patient request as above for now #mood d/o - continue abilify and lamictal. holding adderall. FEN - IVF. electrolytes replacement/monitoring. diet as tolerated. PPX - SCDs. holding anticoagulation s/p LP. COR - FULL. Dispo - Patient admitted to inpatient status in setting of severity of symptoms and continued evaluation. anticipate > 2 midnight stay. Subjective: Patient reports L sided flank pain this AM, continued headache Objective: Vital Signs Temp Pulse Resp BP Pulse Ox 37.1 C 105 H 12 98/58 L 100 10/29/18 11:22 10/29/18 11:22 10/29/18 11:22 10/29/18 11:22 10/29/18 11:22 Microbiology 10/28/18 21:50 Gram Stain - Final Cerebral Spinal Fluid Laboratory Results 10/29/18 03:46 10/29/18 03:46 10/28/18 10/29/18 10/30/18 05:59 05:59 05:59 Intake Total 860 Output Total 600 500 Balance 260 -500 - Physical Exam Constitutional: uncomfortable Eyes: PERRL Ears, Nose, Mouth, Throat: moist mucous membranes Cardiovascular: regular rate and rhythym Respiratory: no respiratory distress Gastrointestinal: soft, non-tender abdomen Genitourinary: other (L flank pain present, +costovertebral angle tenderness) Skin: warm Musculoskeletal: full muscle strength Neurologic: AAOx3 Psychiatric: interacting appropriately ICD10 Worksheet Patient Problems: Problems Problem Status Onset Hypokalemia Acute Hypomagnesemia Acute Viral syndrome Acute
[2018-10-30] MEDS ORDERED: GUAIFENESIN/DM 10 ML UDCUP PO PRN (00:04)
--- NOTE | 2018-10-30 00:04 | HOSPPROG ---
Hospitalist Progress Note Assessment/Plan: Hospitalist Night float Note Notified by RN that ddimer ordered for patient c/o pleuritic chest pain and new cough this evening elevated 0.89. Patient with previous history of PE age 16. Cough nonproductive. patient taking small breaths 2/2 pleuritic chest pain. She notes this does not feel similarly to her PE sx. Patient without tachycardia/hypoxia at this time. Mother notes she assisted patient to bathroom this evening and patient did not have any desaturations as she did earlier in the day. No calf pain/swelling. 1 view CXR ordered. image and radiology report reviewed. notes possible pna LLL. On exam all mckeon clear. patient taking shallow breaths trying to avoid coughing. Patient with history of multiple CT exposures and wants to avoid additional higher dose radiation. ddimer could also be elevated as acute phase reactant in setting of acute infectious process. Clinically patient without tachycardia, hypoxia, tachypnea and is resting comfortably in her bed sleeping intermittently during interview. I discussed with patient and her mother rule out weather CTA or VQ both involve radiation exposure. Offered therapeutic and ppx anticoagulation options for tonight. Patient with SCDs in place. LE US although likely low yield and ekg also likely low yield. Patient and mother would like to monitor overnight. would consider ppx/tx anticoagulation dosing but concerned regarding bleeding risk. Incentive spirometry ordered. encourage ambulation, deep breathing/cough. Patient amenable to a 2 view CXR in the morning. Objective: Vital Signs Temp Pulse Resp BP Pulse Ox 37.0 C 83 16 93/58 L 97 10/29/18 20:00 10/29/18 20:00 10/29/18 20:00 10/29/18 20:00 10/29/18 20:00 Microbiology 10/28/18 21:50 Gram Stain - Final Cerebral Spinal Fluid Laboratory Results 10/29/18 03:46 10/29/18 03:46 10/28/18 10/29/18 10/30/18 05:59 05:59 05:59 Intake Total 860 1235 Output Total 600 1500 Balance 260 -265 ICD10 Worksheet Patient Problems: Problems Problem Status Onset Hypokalemia Acute Hypomagnesemia Acute Viral syndrome Acute
[2018-10-30] MEDS ORDERED: CEPACOL LOZENGE PO PRN (00:05)
[2018-10-30 04:18] LABS: PLATELET COUNT 160 10^3/uL (150-400)
[2018-10-30] MEDS: ACETAMINOPHEN 500 MG TAB PO SCH ×3 (05:10→22:15)
[2018-10-30] MEDS: ONDANSETRON 4 MG/2 ML VIAL IVP PRN ×2 (08:46→17:30)
[2018-10-30] MEDS: KETOROLAC 15 MG/1 ML SDV IVP PRN (08:48)
--- NOTE | 2018-10-30 09:52 | PDMN ---
Medical Necessity Medical necessity: MCG: UTI M300 A-2 days: UTI with +/- bacteremia, pyelonephritis, hypokalemia, hypomag., hyponatremia, hyperbilirubinemia, COSTA fever/chills/sweats, N/V, body aches, neck pain and fatigue. , PMHx: PE, nephrolithiasis,. D Dimer elevated, CXR shows early RLL PNA, ID rec. ongoing IV abx, U/S, anticipate > 2 MN ongoing med nec care- further monitoring and tx. of above
[2018-10-30] MEDS ORDERED: PROTOCOL K PHOSPHATE 1 DOSE IV PRN (10:08)
[2018-10-30] MEDS: ARIPiprazole 2 MG TAB PO SCH (10:46)
[2018-10-30] MEDS ORDERED: IOPAMIDOL (ISOVUE 370) 100 ML BTL IV ONE ×2 (11:44→11:56)
[2018-10-30] MEDS: ENOXAPARIN 40 MG/0.4 ML SYR SC SCH (13:17)
--- NOTE | 2018-10-30 13:17 | HOSPPROG ---
Hospitalist Progress Note Assessment/Plan: This is a pleasant 22 yo F with pmhx significant for PE (age 16) and nephrolithiasis who presents to the ED today with complaints of 24-48 hours of fevers/chills/sweats, bodyaches, nausea with 1 episode of vomiting, COSTA and neck pain. #Pyelonephritis - Patient with c/o COSTA without photophobia and neck pain with decreased ROM but neg meningeal signs. LP WNL. HSV, EBC pending. - UA positive for 2+ LE, 50-182 WBC, 4+ Bacteria, 3+ Mucus, also with L sided flank pain as well as costovertebral angle tenderness, urine culture pending- NGTD - ID consulted, recommended continued IV Ceftriaxone for now pending culture data, also ordered retroperitoneal U/S which showed increased echogenicity in superior pole of L kidney, representing possible pyelonephritis, no evidence of hydronephrosis - Patient with history of nephrolithiasis and multiple CT scans given hx of PE and nephrolithiasis she would like to avoid more exposure to radiation at this time, discussed that if symptoms not continuing to improve we may need to proceed with CT A/P w/o IVC to further evaluate for kidney stone despite no hydronephrosis seen on U/S - Urine, blood, and CSF cultures pending Pneumonia - Pt with episode of chest pain overnight with elevated D-dimer, 2V CXR this morning showing b/l LL PNA - CTA performed this AM due to elevated d-dimer, hx of PE and chest paint that was negative for PE but confirmed b/l LL PNA - Currently on Ceftriaxone for UTI as above, will f/u ID recommendations this afternoon for abx - Wean 02 as tolerated #Hypokalemia (Acute) - replacement ordered. 4.0 this AM. Continue to monitor #Hypomagnesemia (Acute) - replacement given. Continue to monitor #hyponatremia - holding chlorthalidone. IVF. #hyperbilirubinemia/mild transaminitis - IVF. Improving. Continue to monitor #Hx PE - Restarted prophylactic Lovenox this AM. mobilize as tolerated. #Hx nephrolithiasis - UA positive, holding off on CT abdomen/pelvis per patient request as above for now #mood d/o - continue abilify and lamictal. holding adderall. FEN - IVF. electrolytes replacement/monitoring. diet as tolerated. PPX - SCDs. holding anticoagulation s/p LP. COR - FULL. Dispo - Patient admitted to inpatient status in setting of severity of symptoms and continued evaluation. anticipate > 2 midnight stay. Subjective: Pt reports continued chest pain with deep breathing this aM Objective: Vital Signs Temp Pulse Resp BP Pulse Ox 37.3 C 93 14 103/62 99 10/30/18 11:30 10/30/18 11:30 10/30/18 11:30 10/30/18 11:30 10/30/18 11:30 Microbiology 10/28/18 21:50 Gram Stain - Final Cerebral Spinal Fluid Laboratory Results 10/30/18 04:00 10/30/18 04:00 10/29/18 10/30/18 10/31/18 05:59 05:59 05:59 Intake Total 860 2886 370 Output Total 600 1750 Balance 260 1136 370 - Physical Exam Constitutional: chronically ill appearing Eyes: PERRL Ears, Nose, Mouth, Throat: moist mucous membranes Cardiovascular: regular rate and rhythym Respiratory: reduced air movement, rhonchi Gastrointestinal: soft, non-tender abdomen Genitourinary: other (L flank pain with palpation), No moura in urethra Skin: warm Musculoskeletal: full muscle strength Neurologic: AAOx3 Psychiatric: interacting appropriately ICD10 Worksheet Patient Problems: Problems Problem Status Onset Hypokalemia Acute Hypomagnesemia Acute Viral syndrome Acute
[2018-10-30] MEDS ORDERED: K PHOS 15 MMOL in D5W 250 ML IV ONE (13:45)
[2018-10-30] MEDS: BENZONATATE 100 MG CAP PO PRN (14:11)
[2018-10-30] MEDS ORDERED: AZITHROMYCIN IV 500 MG in NS 250 ML IV SCH (15:30)
--- NOTE | 2018-10-30 16:13 | ASMTCMCOM ---
CM Note CM Note Notes: Pt testing shows postive for UTI as well as pneumonia and possible pyelonephritis. Is on antibiotics and is on 1L oxygen as she desaturates to around 86% when she if off oxygen. Pt goes to school in [place] and was here on a visit. Her father was in her room this morning. No therapies are ordered. CM will continue to monitor. CM D/C plan: Likely independent to home Date Signed: 10/30/2018 04:12 PM Electronically Signed By:Alaina Valle
--- NOTE | 2018-10-30 17:08 | PCMIDPN ---
Assessment/Plan: Assessment/Plan: * Fever: Possible element related to pyelonephritis given initial presentation with pyuria, flank pain and growth of E coli on urine culture. CT today also reveals significant bilateral pneumonia. Will continue ceftriaxone and add azithromycin given findings of pneumonia. Will obtain respiratory pathogen panel by PCR testing to assess for etiology. Will hold off on additional testing such as Coccidioides antibody (not highly endemic in [place]) or further autoimmune evaluation such as ANCA testing pending results of respiratory pathogen panel. Will place patient in droplet precautions pending respiratory PCR findings. Continue to follow up blood cultures as available. Time spent, greater than 35 min, which greater than half was spent in education/ counseling/coordination of care related to fever with diagnostic considerations of pyelonephritis and pneumonia. Care coordinated with patient, family, nursing staff, Dr. Trevino, and Radiology. 10/30/18 17:04 Subjective: Patient complains of chest pain with inspiration, dry cough and shortness of breath. No dysuria or residual flank pain. Does note left-sided pain with respiration. Initial consultation by Dr. Thumran dated 10/29/2018 reviewed in full. 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 Travel to [facility] in August. No animal exposures. Notes mild nausea and poor appetite. Objective: Vital Signs Temp Pulse Resp BP Pulse Ox 38.6 C H 91 20 101/54 L 99 10/30/18 15:07 10/30/18 15:07 10/30/18 15:07 10/30/18 15:07 10/30/18 15:07 Microbiology 10/28/18 21:50 Gram Stain - Final Cerebral Spinal Fluid Laboratory Results 10/30/18 04:00 10/30/18 04:00 10/29/18 10/30/18 10/31/18 05:59 05:59 05:59 Intake Total 860 2886 370 Output Total 600 1750 700 Balance 260 1136 -330 Ceftriaxone # 2 Blood cultures x2 no growth to date Urine culture greater than 100,000 E coli CSF culture no growth to date Temperature 38.6 degrees - Physical Exam General Appearance: alert, no apparent distress, non-toxic EENT: No scleral icterus, No conjunctival petechiae Respiratory: lungs clear, other (Frequent cough with inspiration), No respiratory distress Cardiac/Chest: regular rate, rhythm, No systolic murmur Extremities: No inflammation Abdomen: non-tender, No distended Back: No CVA tenderness Skin: No embolic lesions ICD10 Worksheet Patient Problems: Problems Problem Status Onset Hypokalemia Acute Hypomagnesemia Acute Viral syndrome Acute
[2018-10-30] MEDS: lamoTRIgine 100 MG TAB PO SCH (22:17)
[2018-10-31 04:37] LABS: PLATELET COUNT 186 10^3/uL (150-400)
[2018-10-31] MEDS: ACETAMINOPHEN 500 MG TAB PO SCH (08:13)
[2018-10-31] MEDS: BENZONATATE 100 MG CAP PO PRN (08:18)
[2018-10-31] MEDS: DOXYCYCLINE INJ 100 MG in NS 250 ML IV SCH ×2 (09:30→21:49)
[2018-10-31] MEDS: ENOXAPARIN 40 MG/0.4 ML SYR SC SCH (09:37)
[2018-10-31] MEDS: KETOROLAC 15 MG/1 ML SDV IVP PRN ×2 (09:47→18:48)
[2018-10-31] MEDS: ACETAMINOPHEN/ASA/CAFFEINE 1 EACH TAB PO PRN ×2 (14:04→19:52)
[2018-10-31] MEDS ORDERED: FUROSEMIDE 20 MG/2 ML VIAL IVP ONE (14:50)
[2018-10-31] MEDS ORDERED: POTASSIUM CL 20 MEQ/15 ML UDCUP PO ONE (14:51)
--- NOTE | 2018-10-31 14:59 | HOSPPROG ---
Hospitalist Progress Note Assessment/Plan: This is a pleasant 22 yo F with pmhx significant for PE (age 16) and nephrolithiasis who presented to the ED today with complaints of 24-48 hours of fevers/chills/sweats, bodyaches, nausea #Pyelonephritis, left sided - Patient with c/o COSTA without photophobia and neck pain with decreased ROM but neg meningeal signs. LP WNL. HSV, EBC pending. - UA positive for 2+ LE, 50-182 WBC, 4+ Bacteria, 3+ Mucus, also with L sided flank pain as well as costovertebral angle tenderness, urine culture c/w Ecoli. Retroperitoneal U/S showed increased echogenicity in superior pole of L kidney, representing possible pyelonephritis, no evidence of hydronephrosis - ID following - Patient with history of nephrolithiasis and multiple CT scans given hx of PE and nephrolithiasis she would like to avoid more exposure to radiation at this time, discussed that if symptoms not continuing to improve we may need to proceed with CT A/P w/o IVC to further evaluate for kidney stone despite no hydronephrosis seen on U/S Pneumonia - CTA performed 10/30 due to elevated d-dimer, hx of PE and chest paint that was negative for PE but confirmed b/l LL PNA - Currently on Ceftriaxone for UTI as above, will f/u ID recommendations this afternoon for abx - Wean 02 as tolerated #Bradycardia and long QT following Azithromycin #COSTA #Hypokalemia (Acute) - replace as needed #Hypomagnesemia (Acute) - replace as needed #hyponatremia - holding chlorthalidone. #hyperbilirubinemia/mild transaminitis - resolved #Pedal Edema #Hx PE - prophylactic Lovenox #Hx nephrolithiasis - UA positive, holding off on CT abdomen/pelvis per patient request as above for now #mood d/o - continue abilify and lamictal. holding adderall. Plan: -Rocephin, Doxy -Excedrin for COSTA -Stop Tylenol -trail of diuretic -TTE -Avoid azithromycin -Hold Abilify tonight, restart tomorrow -probiotic per their request -Lovenox for DVT proph -Inpatient Subjective: + COSTA. + cough. + SOB, + ankle swelling Objective: Vital Signs Temp Pulse Resp BP Pulse Ox 36.6 C 71 24 H 102/66 93 05/29/19 11:14 10/31/18 11:14 10/31/18 11:14 10/31/18 11:14 10/31/18 11:14 Microbiology 10/29/18 02:50 Urine Culture - Final Urine,Clean Catch Escherichia Coli 10/30/18 17:20 Respiratory Panel (PCR) - Final Nasal, Sinus - Swab No Organism Detected By Pcr 10/28/18 21:50 Gram Stain - Final Cerebral Spinal Fluid Laboratory Results 10/31/18 03:50 10/31/18 03:50 10/30/18 10/31/18 11/01/18 05:59 05:59 05:59 Intake Total 2886 1270 Output Total 1750 1600 1200 Balance 1136 -330 -1200 - Physical Exam Constitutional: no apparent distress Eyes: PERRL, EOMI Ears, Nose, Mouth, Throat: moist mucous membranes, hearing normal Cardiovascular: regular rate and rhythym, edema (trace) Respiratory: other (crackles bilaterally) Gastrointestinal: normoactive bowel sounds Skin: warm Neurologic: AAOx3 Psychiatric: interacting appropriately, not anxious, not encephalopathic Lymph, Heme, Immunologic: No petechiae ICD10 Worksheet Patient Problems: Problems Problem Status Onset Hypokalemia Acute Hypomagnesemia Acute Viral syndrome Acute
--- NOTE | 2018-10-31 16:55 | ECHO ---
[email or web address] [address] Main: [phone] Echocardiography Examination Transthoracic Name: MANOJ SUAZO MR#: [id number] Study Date: 10/31/2018 Study Time: 03:38 PM Date of : 1995 Age: 22 year(s) Height: 167.6 cm (66 in.) Weight: 62.6 kg (138 lb.) BSA: 1.71 m2 Gender: Female Examination: Echo Contrast: Image Quality: Adequate Rhythm: Heart Rate: BP: 106 mmHg/65 mmHg Indication: Pedal edema/recurrent infection Procedure Staff Referring Physician: Substitute Crossing Guard: Aminata Stovall RDCS Reading Physician: Grupo Henley MD Requesting Provider: Ordering Physician: Jeremias Mathews Indication: Pedal edema/recurrent infection Measurements Chambers AV/MV Label Value Normal Value Label Value Normal Value LVDd, 2D 4.9 cm (3.9cm - 5.3cm) AV PGmean 3 mmHg LVDs, 2D 3.1 cm (2.1cm - 4cm) AV Vmax 1.28 m/s IVSd, 2D 0.6 cm (0.6cm - 1.1cm) MV E Vmax 0.78 m/s LVPWd, 2D 0.7 cm MV A Vmax 0.53 m/s LVEF, BP 68 % (55% - 70%) MV E/A 1.47 LVEF, 2D 66 % (54% - 74%) MV E/E' lateral 5.4 LA Volume, BP 32 ml (22ml - 52ml) MV E/E' septal 6.8 (2.4 - 2.4) LADs, 2D 3.2 cm (2.7cm - 3.8cm) MV E' septal 0.11 m/s LAESV index, BP 18.7 ml/m2 MV E' lateral 0.14 m/s Additional Vessels MV E/E' mean 6.24 Label Value Normal Value MV E' mean 0.12 m/s AoAsc 2.5 cm TV/PV AoRoot, MM 2.8 cm (2.2cm - 3.7cm) Label Value Normal Value RA Pressure 5 mmHg RVSP 34 mmHg TR Pmax 29 mmHg TR Vmax 2.67 m/s Patient: MANOJ SUAZO Study Date: 10/31/2018 Page 1 of 2 03:38 PM Conclusions Normal left ventricular size and function. LVEF estimated at 65-70% and calculated at 68 % by Blackwood's. Normal left ventricular free wall thickness and wall motion. Normal LA, RA and RV dimensions. Normal appearing valvular structures. Trivial mitral regurgitation. Mild tricuspid regurgitation with normal estimated RVSP. Trivial pericardial effusion. Findings Left Ventricle: Left ventricle is normal in size. Normal global systolic left ventricular function. The ejection fraction, measured by Simpsons method, is 68 %. EF range is estimated at 65 % - 70 %. Left ventricle wall thickness is normal. There are no regional wall motion abnormalities. Left ventricular diastolic function parameters are normal. IVS: The septum is intact. Right Ventricle: Normal size right ventricle. Right ventricular systolic function is normal. Left Atrium: The left atrium is normal in size. IAS: Normal appearing atrial septum. Right Atrium: The right atrium is normal in size. Mitral Valve: Mitral valve is normal in appearance. Trivial mitral regurgitation. No mitral valve stenosis. Aortic Valve: Aortic leaflets exhibit normal cuspal separation. No aortic valve regurgitation. There is no aortic stenosis. The aortic valve is trileaflet. Tricuspid Valve: Tricuspid valve leaflets are normal in appearance and function. Mild tricuspid regurgitation. No tricuspid valve stenosis. Right Ventricular systolic pressure is measured at 34 mmHg. Pulmonary artery pressure normal. Pulmonic Valve: Pulmonic leaflets exhibit normal cuspal separation. Trivial pulmonic valve regurgitation is present. There is no pulmonic valve stenosis. Aorta: The aorta is normal. The aortic root size in M-mode measures 2.8 cm. The ascending aorta measures 2.5 cm. Aorta Measurements AoRoot, MM is 2.8 cm. Pericardium: Trivial pericardial effusion. No pleural effusion present. Exam Details Procedure Ordered: Echo Procedure Status: Routine study Image Quality: Adequate Facility Location: Cardiac Echo 1 (No Signature Object) Patient: MANOJ SUAZO Study Date: 10/31/2018 Page 2 of 2 03:38 PM [id number]
--- NOTE | 2018-10-31 17:25 | PCMIDPN ---
Assessment/Plan: Assessment: 22-year-old woman with acute febrile illness manifesting with pyuria, bacteriuria, bilateral lower lobe pulmonary infiltrates, proteinuria, hematuria all in the setting of a history pulmonary embolism at the age of 16. Presumptively treating as pyelonephritis due to E coli without bacteremia, with incidentally found pulmonary infiltrates chest CT performed due to chest pressure and dyspnea with cough. Current antimicrobial regimen with ceftriaxone and doxycycline will cover both the urinary tract pathogen and common causes of community onset pneumonia. Other potential etiologies the because kidney disease and pulmonary disease include ANCA associated vasculitis sarcoidosis, lupus. Will continue to evaluate for noninfectious causes and evaluate daily improvement. Discussed with patient and family at bedside criteria for discharge which will include at least 24 hr without fevers, tolerating oral intake to allow transition to oral antimicrobials, and ability to physically perform daily activities. 1. Pyelonephritis due to Escherichia coli 2. Bilateral pulmonary infiltrates; etiology undefined 3. Hematuria and proteinuria; etiology undefined 4. Bradycardia episode; possible interaction between azithromycin and aripiprazole 5. History of pulmonary embolism aged 16 Plan: 1. Continue ceftriaxone and IV doxycycline until tolerating oral diet 2. Testing added: urine antigens for Legionella and Pneumococcus, EKG, ANCAs, NICHOL screen, DAREN level, TSH, Coccidioides antibodies 3. Reviewed in detail potential side effects of beta-lactam antibiotics to include: allergy, rash, nausea, antibiotic-associated diarrhea, Clostridioides difficile colitis. 4. Reviewed in detail potential side effects of doxycycline to include: allergy , rash, nausea, antibiotic-associated diarrhea, Clostridioides difficile colitis , photosensitivity, heart burn, pigmented rash. 5. Follow up will be with providers in [place], [place] Arian Sanabria MD Infectious Diseases 10/31/18 17:26 Subjective: Last documented fever at approximately 3:00 p.m. Yesterday. The patient manifested general feeling of warmth in the evening yesterday. Feeling hungry for the 1st time this afternoon. Developed migraine headache beginning approximately an hour after waking this morning with associated nausea but no emesis. Last episode of emesis more than 24 hr ago. No diarrhea. No rash. Appetite improving. Ambulated in the hallway yesterday evening with increased respiratory reserve. Continues to have a nonproductive cough with deep inspiration. Objective: Vital Signs Temp Pulse Resp BP Pulse Ox 36.7 C 70 16 106/65 95 10/31/18 15:26 10/31/18 15:26 10/31/18 15:26 10/31/18 15:26 10/31/18 15:26 Microbiology 10/28/18 21:50 Gram Stain - Final Cerebral Spinal Fluid CSF Culture - Final 10/29/18 02:50 Urine Culture - Final Urine,Clean Catch Escherichia Coli 10/30/18 17:20 Respiratory Panel (PCR) - Final Nasal, Sinus - Swab No Organism Detected By Pcr Laboratory Results 10/31/18 03:50 10/31/18 03:50 10/30/18 10/31/18 11/01/18 05:59 05:59 05:59 Intake Total 2886 1270 Output Total 1750 1600 1200 Balance 1136 -330 -1200 C-Reactive Protein 150.7 mg/L (<10.0) H 10/31/18 03:50 Ongoing monitoring for antimicrobial toxicity with: CBC, BMP, interval historical information, and interval physical exam. Discussed treatment/diagnostic testing and testing results with admitting provider(s). Personally reviewed interval laboratory results. - Physical Exam General Appearance: no apparent distress, non-toxic EENT: No scleral icterus Respiratory: No respiratory distress, No accessory muscle use Neck: full range of motion, supple Extremities: No inflammation, No swelling, No erythema Skin: No erythema Neuro/Psych: alert, oriented x 3, depressed affect, No confused ICD10 Worksheet Patient Problems: Problems Problem Status Onset Hypokalemia Acute Hypomagnesemia Acute Viral syndrome Acute
[2018-10-31] MEDS: lamoTRIgine 100 MG TAB PO SCH (21:47)
[2018-11-01 05:39] LABS: PLATELET COUNT 151 10^3/uL (150-400)
[2018-11-01] MEDS ORDERED: DOXYCYCLINE HYCLATE 100 MG CAP/TAB PO SCH (09:00)
[2018-11-01] MEDS: ENOXAPARIN 40 MG/0.4 ML SYR SC SCH (09:34)
[2018-11-01] MEDS: ARIPiprazole 2 MG TAB PO SCH (09:44)
--- NOTE | 2018-11-01 10:03 | PCMIDPN ---
Assessment/Plan: Assessment: 22-year-old woman with acute febrile illness manifesting with pyuria, bacteriuria, bilateral lower lobe pulmonary infiltrates, proteinuria, hematuria all in the setting of a history pulmonary embolism at the age of 16. Overall improved with greater than 36 hr without fevers. She has no tolerating diet as resolution of her headache. She has no new signs or symptoms suggestive of ongoing, active infection not responding to therapy. Although definitive answer to her overall syndrome is not been achieved she has improved to the point where she can transition to outpatient care. As she will be returning to send a [facility] to finish final exams and for work the summer will provide a list of ID providers for her to follow up with. 1. Pyelonephritis due to Escherichia coli; improved 2. Bilateral pulmonary infiltrates; etiology undefined 3. Hematuria and proteinuria; etiology undefined 4. Bradycardia episode; possible interaction between azithromycin and aripiprazole 5. History of pulmonary embolism aged 16 Plan: 1. Change IV doxycycline to oral doxycycline 100 mg twice daily; stop date will be 11/07 2. At discharge change ceftriaxone to cefdinir 300 mg p.o. Twice daily with expected stop date of 11/06 2. Testing pending: urine antigens for Legionella and Pneumococcus, ANCAs, NICHOL screen, DAREN level, Coccidioides antibodies 3. Reviewed in detail potential side effects of beta-lactam antibiotics to include: allergy, rash, nausea, antibiotic-associated diarrhea, Clostridioides difficile colitis. 4. Reviewed in detail potential side effects of doxycycline to include: allergy , rash, nausea, antibiotic-associated diarrhea, Clostridioides difficile colitis , photosensitivity, heart burn, pigmented rash. 5. Follow up will be with providers in [place], [place]; will provide patient with available providers 6. Repeat UA today Arian Sanabria MD Infectious Diseases 11/01/18 10:00 Subjective: No fever or chills in the past 24-hours. Tolerating oral diet with solids and liquids. No diarrhea, nausea, or other GI symptoms. No rash. Appetite improving. Ambulating without difficulty. Cough with deep inspiration decreasing in frequency and intensity. Threshold for dyspnea with ambulation increasing. Improved since admission but not back to baseline health. Objective: Vital Signs Temp Pulse Resp BP Pulse Ox 37.1 C 70 21 H 103/60 90 L 11/01/18 07:38 11/01/18 07:38 11/01/18 07:38 11/01/18 07:38 11/01/18 07:38 Microbiology 10/28/18 21:50 Gram Stain - Final Cerebral Spinal Fluid CSF Culture - Final 10/29/18 02:50 Urine Culture - Final Urine,Clean Catch Escherichia Coli Laboratory Results 11/01/18 03:55 11/01/18 03:55 10/31/18 11/01/18 11/02/18 05:59 05:59 05:59 Intake Total 1270 800 Output Total 1600 1200 Balance -330 -400 C-Reactive Protein 150.7 mg/L (<10.0) H 10/31/18 03:50 Ongoing monitoring for antimicrobial toxicity with: CBC, BMP, interval historical information, and interval physical exam. Discussed treatment/diagnostic testing and testing results with admitting provider(s). Personally reviewed interval laboratory results. Personally reviewed the images and interpreted the following radiographs: CT of chest showing bibasilar patchy infiltrates - Physical Exam General Appearance: no apparent distress, non-toxic EENT: No scleral icterus Respiratory: No respiratory distress, No accessory muscle use Neck: full range of motion, supple Extremities: No inflammation, No swelling, No erythema Skin: No rash Neuro/Psych: alert, normal mood/affect, oriented x 3, No confused ICD10 Worksheet Patient Problems: Problems Problem Status Onset Hypokalemia Acute Hypomagnesemia Acute Viral syndrome Acute
[2018-11-01 11:32] VITALS: BP 111/65
--- NOTE | 2018-11-01 12:46 | PDDCSUM ---
Discharge Summary Discharge Summary: Assessment/Plan: 22-year-old woman with acute febrile illness manifesting with pyuria, bacteriuria, bilateral lower lobe pulmonary infiltrates, proteinuria, hematuria all in the setting of a history pulmonary embolism at the age of 16. Overall improved with greater than 36 hr without fevers. She has no new signs or symptoms suggestive of ongoing, active infection not responding to therapy. Although definitive answer to her overall syndrome is not been achieved she has improved to the point where she can transition to outpatient care. As she will be returning to send a [facility] to finish final exams and for work the summer, she has been provided an ID physician contact info to arrange follow up. Abx: will cont Doxycycline 100 mg twice daily and cefdinir 300 mg p.o. Twice daily/ stop date will be 11/07 Testing pending: urine antigens for Legionella and Pneumococcus, ANCAs, NICHOL screen, DAREN level, Coccidioides antibodies 1. Pyelonephritis due to Escherichia coli; improved 2. Bilateral pulmonary infiltrates; etiology undefined 3. Hematuria and proteinuria; etiology undefined 4. Bradycardia episode; possible interaction between azithromycin and aripiprazole. Azithromycin has been added to allergy list 5. History of pulmonary embolism aged 16 5. Pedal Edema, resolved, etiology likely iatrogenic. TTE unremarkable 6. COSTA, resolved 7. Hypokalemia: was replaced. will schedule daily 8. Hx nephrolithiasis - restart chlorthalidone for stone prevention 9. Mood d/o - continue abilify and lamictal. 10.ADHD: adderall. Exam: NAD AAOX3 RRR CTA B S/NT/ND MEDS: SEE MED REC TOTAL TIME SPENT ON D/C 40 MINS
[2018-11-01] MEDS: KETOROLAC 15 MG/1 ML SDV IVP PRN (13:03)
--- NOTE | 2018-11-01 13:32 | ASDISCHSUM ---
Discharge Information Plan Status:Home with No Needs Medically Cleared to Leave: Discharge Date: CM D/C Disposition: ADT D/C Disposition:Home, Routine, Self-Care Projected Discharge Date: Transportation at D/C: Discharge Delay Reason: Follow-Up Date: Discharge Slot: Final Diagnosis: Placement Information Patient Contact Information Contact Name:KAPIL Relationship:Mother Address:[address] [place] [address] City:[place] Alternate Phone: State/Zip Code:[place] [address] Email: Financial Information Financial Class:HMO and PPO Plans Primary Plan Desc:[facility] Primary Plan Number:[id number] Secondary Plan Desc: Secondary Plan Number: Assessment Information LACE LACE Length of stay for Answers: 4-6 days current admission Acuity / Level of Answers: Yes Care: Did the patient have an inpatient admission? Comorbidities - select Answers: Other Notes: PE all that apply # of Emergency department Answers: 1-2 visits in the last 6 months Social determinants Answers: Mental health diagnosis (anxiety, depression, pers onality disorders, etc.) Score: 12 Date Signed: 11/01/2018 01:30 PM Electronically Signed By:Alaina Valle [facility] CM Progress Note CM Note CM Note Notes: Chart reviewed. Discussed plan of care with MD. 22 year old female student admitted via ED with fever, had LP for diagnostic workup. Family at bedside. Electrolyte imbalances noted. CM to follow for needs. Plan: TBD Date Signed: 10/29/2018 10:11 AM Electronically Signed By:Kamala Braden RN [facility] CM Progress Note CM Note CM Note Notes: Pt testing shows postive for UTI as well as pneumonia and possible pyelonephritis. Is on antibiotics and is on 1L oxygen as she desaturates to around 86% when she if off oxygen. Pt goes to school in [place] and was here on a visit. Her father was in her room this morning. No therapies are ordered. CM will continue to monitor. CM D/C plan: Likely independent to home Date Signed: 10/30/2018 04:12 PM Electronically Signed By:Alaina Garcia.LACHELLE [facility] CM Progress Note CM Note CM Note Notes: Pt discussed in interdisciplinary rounds this morning. She has been found to ecoli in her kidney and is on antibiotics for it. Labs are repeated today. She may need to be evaluated for kidney stones if no improvement. CM will continue to follow. CM D/C plan: TBD Date Signed: 11/01/2018 01:31 PM Electronically Signed By:Alaina Garcia.LACHELLE Case Management Discharge Plan Note Case Management Discharge Discharge Order Complete? Answers: Yes Patient to Obtain Answers: via Family Medications Transportation Arranged Answers: Family/Friends Family Notified Answers: Yes Notes: parents here Discharge Comments Notes: Pt is being D/Cd home today with no needs. She will go home with her parents in [place] before returning to [facility] in [place]. CM has given mother a letter explaining medical necessity of her absence from school. RN will provide note regarding medical necessity of canelled airline flights. Pt is D/Cing with PO antibiotics. Date Signed: 11/01/2018 01:29 PM Electronically Signed By:Alaina Garcia.LACHELLE Intervention Information
--- NOTE | 2018-11-02 14:33 | CPEKG ---
Test Reason : OPEN Blood Pressure : / mmHG Vent. Rate : 066 BPM Atrial Rate : 068 BPM P-R Int : 147 ms QRS Dur : 079 ms QT Int : 399 ms P-R-T Axes : 057 044 036 degrees QTc Int : 418 ms Sinus rhythm Confirmed by Juan Antonio Blair ([id number]) on 11/02/2018 2:32:47 PM Referred By: Jeremias Mathews Confirmed By:Juan Antonio Blair
== END 2018-11-01 14:12 | disposition home or self-care (01) | DRG 690 ==
LOC: F2W 10-29 01:03
PROVIDERS: ADMIT Family Medicine; ATTEND Family Medicine
PROC: 009U3ZX Drainage of Spinal Canal, Percutaneous Approach, Diagnostic (ICD-10-PCS; principal; 2018-10-28)
DX: N12 Tubulo-interstitial nephritis, not specified as acute or chronic (principal); B96.20 Unspecified Escherichia coli [E. coli] as the cause of diseases classified elsewhere; R91.8 Other nonspecific abnormal finding of lung field; E87.6 Hypokalemia; E87.1 Hypo-osmolality and hyponatremia; E83.42 Hypomagnesemia; R74.0 Nonspecific elevation of levels of transaminase and lactic acid dehydrogenase [LDH]; R00.1 Bradycardia, unspecified; R31.9 Hematuria, unspecified; F39 Unspecified mood [affective] disorder; F90.9 Attention-deficit hyperactivity disorder, unspecified type; Z87.440 Personal history of urinary (tract) infections; Z87.442 Personal history of urinary calculi; Z86.711 Personal history of pulmonary embolism
CPT/HCPCS: 82164-90; 82435-PO; 82565-PO; 82947-PO; 83516-90; 84132-PO; 84295-PO; 84520-PO; 85014-ER; 86635-90; 86664-90; 86665-90; 87449-90; 96365; 96366; J0456; J0696; J1650; J1885; J1940; J2405; J2550; J3010; J3475; J3480; Q9967